=== PATIENT | female | born 1995 | race Caucasian/White ===

== ENCOUNTER 2016-08-02 22:13 | Emergency (ER) | payer BC | END 2016-08-03 03:25 | disposition home or self-care (01) | LOC: ER1 22:13 | DX: S16.1XXA Strain of muscle, fascia and tendon at neck level, initial encounter (principal); E05.00 Thyrotoxicosis with diffuse goiter without thyrotoxic crisis or storm; E03.9 Hypothyroidism, unspecified; Z79.899 Other long term (current) drug therapy; V89.2XXA Person injured in unspecified motor-vehicle accident, traffic, initial encounter; Y93.89 Activity, other specified; Y92.410 Unspecified street and highway as the place of occurrence of the external cause | CPT/HCPCS: 70450; 71020; 72070; 72100; 72125; 81001; 84703; 99284 ==

== ENCOUNTER → 2021-04-16 | Outpatient (CLI) | payer OTHER ==
[~2021-04-16] MED LIST: IBUPROFEN600 MG PO
[2021-04-16 13:00] LABS: RED BLOOD COUNT 5.12 M/UL (4.00-5.10); WHITE BLOOD COUNT 7.9 K/UL (4.5-11.0)
[2021-04-16 13:24] LABS: BUN/CREATININE RATIO 13 (0-10)
[2021-04-17 08:13] LABS: ANTISTREPTOLYSIN O AB 55.4 IU/mL (0.0-200.0); RHEUMATOID ARTHRITIS FACTOR <10.0 IU/mL (<14.0); VITAMIN D, 25-HYDROXY 17.4 ng/mL (30.0-100.0)
== END ==
LOC: LAB 11:55
PROVIDERS: Nurse Practitioner Family
DX: M25.50 Pain in unspecified joint (principal); M54.12 Radiculopathy, cervical region; J30.9 Allergic rhinitis, unspecified; E03.9 Hypothyroidism, unspecified; R53.83 Other fatigue; E55.9 Vitamin D deficiency, unspecified; E53.8 Deficiency of other specified B group vitamins; M25.551 Pain in right hip; M25.552 Pain in left hip; Z00.00 Encounter for general adult medical examination without abnormal findings
CPT/HCPCS: 36415; 80053; 80061; 82607; 84439; 84443; 85025; 85652; 86038; 86060; 86141; 86431